=== PATIENT | male | born 1970 | race Two or more races ===

== ENCOUNTER 2020-05-18 03:46 | Emergency (ER) | payer SELFPAY ==
[~2020-05-18] VITALS: Ht 172.7 cm; Wt 80.9 kg
[2020-05-18 03:47] VITALS: Ht 172.7 cm; Wt 80.9 kg
[2020-05-18 04:19] LABS: BASOPHILS 0.2 % (0-2); EOSINOPHILS 3.4 % (0-7); HEMOGLOBIN 14.6 g/dL (13.5-17.5); IMMATURE GRANULOCYTES 0.2 % (0-5); LYMPHOCYTES 39.2 % (15-50); MCH 26.9 pg (26.0-34.0); MCV 79.3 fL (80.0-100.0); MEAN PLATELET VOLUME 9.7 fL (7.4-10.4); PLATELET COUNT 237 10x3/uL (130-400); RBC 5.42 10x6/uL (4.20-6.10); RDW 13.7 % (11.5-14.5); WBC 4.4 10x3/uL (4.8-10.8)
[2020-05-18 04:22] LABS: ALBUMIN 3.7 g/dL (3.4-5.0); ALKALINE PHOSPHATASE 75 U/L (30-120); ALT (SGPT) 37 U/L (10-68); BILIRUBIN - TOTAL 0.49 mg/dL (0.2-1.3); C-REACTIVE PROTEIN 1.2 mg/dL (0.0-0.9); CALC OSMOLALITY 279 mosm/kg (275-300); CARBON DIOXIDE 30.7 mmol/L (21.0-32.0); CHLORIDE - SERUM 102 mmol/L (98-107); CREATININE - SERUM 1.1 mg/dL (0.6-1.3); GLUCOSE 105 mg/dL (74-106); LIPASE 123 U/L (73-393); SODIUM 140 mmol/L (136-145); UREA NITROGEN 15 mg/dL (7-18); eGFR NON AFRICAN AMERICAN 76 mL/min (90-120)
[2020-05-18 04:37] LABS: POTASSIUM - SERUM 2.5 mmol/L (3.5-5.1)
[2020-05-18 04:49] LABS: BILIRUBIN NEGATIVE (NEGATIVE); GLUCOSE NEGATIVE (NEGATIVE); KETONE NEGATIVE (NEGATIVE); NITRITE NEGATIVE (NEGATIVE); UROBILINOGEN NORMAL (NORMAL)
[2020-05-18 04:51] LABS: BACTERIA NONE SEEN /hpf (NEGATIVE); EPITHELIAL CELLS 0-5 /hpf (0-5); RED CELLS - URINE 0-5 /hpf (0-5); WHITE CELLS - URINE NSEEN /hpf (NEGATIVE)
[2020-05-18] MEDS ORDERED: HYDROCODON-ACE1 EA10 PO (05:46)
[2020-05-18] MEDS ORDERED: FLOMAX0.4 MG PO (05:46)
[2020-05-18 05:57] VITALS: BP 107/72
== END 2020-05-18 06:18 | disposition home or self-care (01) ==
LOC: D.ER 03:46
PROVIDERS: Family Medicine
DX: N20.1 Calculus of ureter (principal); Z87.442 Personal history of urinary calculi; I10 Essential (primary) hypertension